=== PATIENT | female | born 1935 | race Hispanic/Latino ===

== ENCOUNTER 2017-12-10 14:05 | Emergency (ER) | payer MEDICARE, BC ==
[2017-12-10 14:22] VITALS: BMI 33.8
[2017-12-10] MEDS ORDERED: Oxycodone/Acetaminophen 5/325 mg Tab PO STA ×2 (14:25→17:01)
--- NOTE | 2017-12-10 14:27 | ED PDOC ---
Arrival/HPI - General Time Seen by Provider: 12/10/17 14:19 Historian: Patient - History of Present Illness Narrative History of Present Illness (Text): 12/10/17 14:25 82 y/o female, no significant pmh, nkda, not on any blood thinner or anticoagulant, c/o fall and rt. shoulder pain s/p tripped over the object on the floor and landed on the facial and rt. shoulder region x 1 hour. Aching pain, aggravated by rt. shoulder movement, had epistaxis earlier but resolved with last tetanus under 6 years ago, no night sweat, no rash, no numbness or tingling, admits mild rt. sided neck pain from the fall, no change in vision, no headache, no chest pain or shortness of breath. Past Medical History - Provider Review Nursing Documentation Reviewed: Yes Family/Social History - Physician Review Nursing Documentation Reviewed: Yes Family/Social History: Unknown Family HX Allergies/Home Meds Allergies/Adverse Reactions: Allergies No Known Allergies Allergy (Verified 12/10/17 14:22) Home Medications: Home Meds Medication Instructions Recorded Confirmed Levothyroxine [Synthroid] 0.112 mg PO QOTHERDAY 12/10/17 12/10/17 Levothyroxine [Synthroid] 100 mcg PO QOTHERDAY 12/10/17 12/10/17 Losartan/Hydrochlorothiazide 1 each PO DAILY 12/10/17 12/10/17 [Hyzaar 100-25 Tablet] Review of Systems - Review of Systems Constitutional: absent: Fatigue, Fevers Eyes: absent: Vision Changes ENT: Epistaxis. absent: Hearing Changes Respiratory: absent: SOB, Cough Cardiovascular: absent: Chest Pain Gastrointestinal: absent: Abdominal Pain, Nausea, Vomiting Musculoskeletal: Arthralgias, Neck Pain. absent: Back Pain, Joint Swelling, Myalgias Skin: absent: Rash, Pruritis Neurological: absent: Headache, Dizziness Psychiatric: absent: Anxiety, Depression, Suicidal Ideation Physical Exam Vital Signs Temp Pulse Resp BP Pulse Ox 12/10/17 14:06 98.6 F 94 H 18 140/100 H 100 Pain Distress: Moderate Mental Status: Positive for: Alert and Oriented X 3 - Systems Exam Head: Present: Atraumatic, Normocephalic. No: Tenderness, Contusion, Swelling, Ecchymosis, Abrasion, Laceration Pupils: Present: PERRL Extroacular Muscles: Present: EOMI Conjunctiva: Present: Normal Ears: Present: NORMAL TM, Normal Canal. No: Erythema Mouth: Present: Moist Mucous Membranes, Normal Lips, Normal Tounge. No: Drooling, Trismus Pharnyx: Present: Normal. No: ERYTHEMA, EXUDATE, TONSILS ENLARGED Nose (External): Present: Contusion. No: Abrasion, Laceration, Lesions Nose (Internal): Present: Normal Inspection, No Active Bleeding, Moist, Clear Mucous, Epistaxis (resolved rt. nostril). No: Engorged, Edematous, Rhinorrhea, Septal Deviation, Septal Hematoma Neck: Present: Normal Range of Motion, Paraspinal Tenderness (+ttp on the rt. paraspinal muscle region). No: MIDLINE TENDERNESS, Lymphadenopathy Respiratory/Chest: Present: Clear to Auscultation, Good Air Exchange. No: Respiratory Distress, Accessory Muscle Use, Wheezes, Decreased Breath Sounds, Rales, Retracting, Rhonchi, Tachypneic, Tender to Palpation Cardiovascular: Present: Regular Rate and Rhythm, Normal S1, S2. No: Murmurs Abdomen: No: Tenderness, Distention, Peritoneal Signs Back: Present: Normal Inspection Upper Extremity: Present: Normal Inspection, NORMAL PULSES, Other (Rt. upper extremity: +ttp on the proximal humerus region, no elbow/forearm/wrist/hand/ finger tenderness or swelling, no scaphoid tenderness, FROM except painful rt. shoulder movement, sensation intact, motor 5/5, +radial pulse, capillary refill < 2 seconds, neurovascular intact. ). No: Cyanosis, Edema Lower Extremity: Present: Normal Inspection. No: Edema Neurological: Present: GCS=15, CN II-XII Intact, Speech Normal Skin: Present: Warm, Dry, Normal Color. No: Rashes Psychiatric: Present: Alert, Oriented x 3, Normal Insight, Normal Concentration Medical Decision Making ED Course and Treatment: 12/10/17 14:31 -CT head/facial/cervical -Rt. shoulder movement -Percocet -Observe and reassess 12/10/17 16:50 -CT Head: No intracranial hemorrhage or mass effect. No calvarial fracture. Cerebral atrophy and left-sided lacune - suggested. -CT maxillofacial: No fracture appreciated. Cervical apophyseal joint hypertrophic arthrosis noted -CT Cervical: No fracture. Minimal malalignment compatible with degenerative ligamentous laxity most notable at C4, C5-C6 levels where degenerative spondylosis and intervening degenerative disc disease and mild facet hyper trophic arthrosis are most notable. Left, small exostosis/spurring and/or ossification of the left ligamentum flavum on axial series 3, image 45 seen at the upper C6 vertebral level on sagittal series 605, image 51. No central stenosis associated features here. -Rt. shoulder xray: Comminuted displaced mid proximal shaft fractured fragments. -I applied the coap splint on the patient with sling which her rt. upper extremity is with full sensation intact, and motor 5/5 with full neurological intact. -I spoke to the orthopedic dr. anna as per patient request, dr. anna will come to see the patient. -I discussed all radiology results including CT Cervical which he suggest to discharge the patient home with orthopedic and neurologist/neurosurgery follow up. -Discharge home with sling, coap splint, follow up with your own pmd and orthopedic/other specialists within 2 days, return to the ER for any new or worsening signs or symptoms. 12/10/17 17:02 -Dr. Anna at the bed side, pt. request more pain which I ordered additional tablet of percocet 12/10/17 17:12 -Dr. Anna removed the splint, manipulated the fracture which he reapply the coap splint, sling applied by him. -I reviewed the [facility] report show no signs of drug abuse. -Discharge home with percocet, sling, coap splint, follow up with your own pmd and orthopedic Dr. Anna within 2 days, return to the ER for any new or worsening signs or symptoms. - RAD Interpretation Radiology Orders: 12/10/17 14:24 CERVICAL SPINE W/O CONTRAST [CT] Stat HEAD W/O CONTRAST [CT] Stat MAXILLOFACIAL W/O CONTRAST [CT] Stat SHOULDER RIGHT [RAD] Stat CT head: FINDINGS: HEMORRHAGE: No intracranial hemorrhage. BRAIN: No mass effect or edema. Generalize sure atrophy. Left lacune- inferior posterior basal ganglionic 2 to 3 mm VENTRICLES: Unremarkable. No hydrocephalus. CALVARIUM: Unremarkable. PARANASAL SINUSES: Unremarkable as visualized. No significant inflammatory changes. MASTOID AIR CELLS: Unremarkable as visualized. No inflammatory changes. OTHER FINDINGS: Atherosclerotic vascular calcifications present supraclinoid internal carotid arteries. . IMPRESSION: No intracranial hemorrhage or mass effect. No calvarial fracture. Cerebral atrophy and left-sided lacune - suggested CT Cervical: VERTEBRAE: No fracture. Mild stepladder like malalignments consistent with degenerative ligamentous laxity. . No destructive bony lesion. Left, small exostosis/ spurring and/or ossification of the left ligamentum flavum on axial series 3, image 45 seen at the upper C6 vertebral body level on sagittal series 605, image 51 no central stenosis associated features here. Plate ridging most pronounced anteriorly and posteriorly at C4-5 C5-6 and to lesser extent C6-7. DISCS/SPINAL CANAL/NEURAL FORAMINA: No significant central canal or neural foraminal stenosis. Disc heights decreased especially at C5-6 and to a lesser extent C4-5 and see C6-7. PARASPINAL SOFT TISSUES: As above regarding the small exostosis and/or spurring on the left side at the upper C6 vertebrae level closest to the left corresponding lamina and flavum here. No complicating spinal stenosis OTHER FINDINGS: None. IMPRESSION: No fracture. Minimal malalignment compatible with degenerative ligamentous laxity most notable at C4, C5-C6 levels where degenerative spondylosis and intervening degenerative disc disease and mild facet hyper trophic arthrosis are most notable. Left, small exostosis/spurring and/or ossification of the left ligamentum flavum on axial series 3, image 45 seen at the upper C6 vertebral level on sagittal series 605, image 51. No central stenosis associated features here. CT Maxillofacial: PROCEDURE: CT MAXILLOFACIAL BONES WITHOUT CONTRAST HISTORY: fall, nasal injury COMPARISON: None TECHNIQUE: Contiguous axial CT images of the maxillofacial bones were obtained. Coronal and sagittal reformats were generated. Radiation dose: Total exam DLP = 869 mGy-cm. This CT exam was performed using one or more of the following dose reduction techniques: Automated exposure control, adjustment of the mA and/or kV according to patient size, and/or use of iterative reconstruction technique. FINDINGS: NASAL BONES: Unremarkable. ORBITS: Unremarkable. PARANASAL SINUSES/ MASTOIDS: Clear. Bilateral low bulla ethmoidalis air cells are incidentally noted developmental variants MAXILLA: Unremarkable. MANDIBLE/ TEMPOROMANDIBULAR JOINTS: Unremarkable. SKULL BASE: Unremarkable. TEMPORAL BONES: Middle ears and mastoid grossly unremarkable. OTHER FINDINGS: None. IMPRESSION: No fracture appreciated. Cervical apophyseal joint hypertrophic arthrosis noted Rt. shoulder xray: COMPARISON: No prior. FINDINGS: BONES: Comminuted right mid the proximal humeral shaft long segmental fracture fragments with lateral displacement of the proximal fracture fragments No shoulder dislocation. Acromioclavicular joint arthrosis Lateral view shows anterior apical angulation of the fracture fragments. JOINTS: Glenohumeral and acromioclavicular joints osteoarthritis. SOFT TISSUES: Normal. OTHER FINDINGS: None. IMPRESSION: Comminuted displaced mid proximal shaft fractured fragments. [employer] Worker: Radiologist - Medication Orders Current Medication Orders: Oxycodone/Acetaminophen (Percocet 5/325 Mg Tab) 1 tab PO STAT STA Stop: 12/10/17 17:02 Discontinued Medications Oxycodone/Acetaminophen (Percocet 5/325 Mg Tab) 1 tab PO STAT STA Stop: 12/10/17 14:26 Last Admin: 12/10/17 14:31 Dose: 1 tab MAR Pain Assessment Document 12/10/17 14:31 HI (Rec: 12/10/17 14:32 HI [id number]) Pain Reassessment Is this a pain reassessment? No Sleep Is patient sleeping during reassessment? No Presence of Pain Presence of Pain Yes - PA / MARKET RESEARCH COORDINATOR / Resident Statement /DO has reviewed & agrees with the documentation as recorded. Disposition/Present on Arrival - Present on Arrival Any Indicators Present on Arrival: No History of DVT/PE: No History of Uncontrolled Diabetes: No Urinary Catheter: No History of Decub. Ulcer: No - Disposition Have Diagnosis and Disposition been Completed?: Yes Diagnosis: Humerus shaft fracture, Fall, Neck pain, Epistaxis Disposition Time: 14:31 Patient Plan: Discharge Patient Problems: Current Active Problems Problem Status Onset Humerus shaft fracture Acute Fall Acute Neck pain Acute Epistaxis Acute Condition: IMPROVED Additional Instructions: -Discharge home with percocet, sling, coap splint, follow up with your own pmd and orthopedic Dr. Anna within 2 days, return to the ER for any new or worsening signs or symptoms. Prescriptions: oxyCODONE/Acetaminophen [Percocet 5/325 mg Tab] 1 tab PO TID PRN #12 tab PRN Reason: Other Referrals: Patric Garcia DO [Staff Provider] - Follow up with primary Reagan Kramer MD [Staff Provider] - Follow up with primary Mahendra Loja MD [Staff Provider] - Follow up with primary Misha Pruett MD [Staff Provider] - Follow up with primary Forms: WORK NOTE
--- NOTE | 2017-12-10 14:53 | CT ---
PROCEDURE: CT HEAD WITHOUT CONTRAST. HISTORY: fall COMPARISON: None available. TECHNIQUE: Axial computed tomography images were obtained through the head/brain without intravenous contrast. Radiation dose: Total exam DLP = 869 mGy-cm. This CT exam was performed using one or more of the following dose reduction techniques: Automated exposure control, adjustment of the mA and/or kV according to patient size, and/or use of iterative reconstruction technique. FINDINGS: HEMORRHAGE: No intracranial hemorrhage. BRAIN: No mass effect or edema. Generalize sure atrophy. Left lacune- inferior posterior basal ganglionic 2 to 3 mm VENTRICLES: Unremarkable. No hydrocephalus. CALVARIUM: Unremarkable. PARANASAL SINUSES: Unremarkable as visualized. No significant inflammatory changes. MASTOID AIR CELLS: Unremarkable as visualized. No inflammatory changes. OTHER FINDINGS: Atherosclerotic vascular calcifications present supraclinoid internal carotid arteries. . IMPRESSION: No intracranial hemorrhage or mass effect. No calvarial fracture. Cerebral atrophy and left-sided lacune - suggested
--- NOTE | 2017-12-10 15:10 | RAD ---
PROCEDURE: Radiographs of the Right Shoulder HISTORY: rt. shoulder injury and pain COMPARISON: No prior. FINDINGS: BONES: Comminuted right mid the proximal humeral shaft long segmental fracture fragments with lateral displacement of the proximal fracture fragments No shoulder dislocation. Acromioclavicular joint arthrosis Lateral view shows anterior apical angulation of the fracture fragments. JOINTS: Glenohumeral and acromioclavicular joints osteoarthritis. SOFT TISSUES: Normal. OTHER FINDINGS: None. IMPRESSION: Comminuted displaced mid proximal shaft fractured fragments.
--- NOTE | 2017-12-10 15:16 | CT ---
PROCEDURE: CT Cervical Spine without contrast HISTORY: fall COMPARISON: None available. TECHNIQUE: Axial computed tomography images were obtained of the cervical spine without the use of intravenous contrast. Coronal and sagittal reformatted images were created and reviewed. Radiation dose: Total exam DLP = 542 mGy-cm. This CT exam was performed using one or more of the following dose reduction techniques: Automated exposure control, adjustment of the mA and/or kV according to patient size, and/or use of iterative reconstruction technique. FINDINGS: VERTEBRAE: No fracture. Mild stepladder like malalignments consistent with degenerative ligamentous laxity. . No destructive bony lesion. Left, small exostosis/spurring and/or ossification of the left ligamentum flavum on axial series 3, image 45 seen at the upper C6 vertebral body level on sagittal series 605, image 51 no central stenosis associated features here. Plate ridging most pronounced anteriorly and posteriorly at C4-5 C5-6 and to lesser extent C6-7. DISCS/SPINAL CANAL/NEURAL FORAMINA: No significant central canal or neural foraminal stenosis. Disc heights decreased especially at C5-6 and to a lesser extent C4-5 and see C6-7. PARASPINAL SOFT TISSUES: As above regarding the small exostosis and/or spurring on the left side at the upper C6 vertebrae level closest to the left corresponding lamina and flavum here. No complicating spinal stenosis OTHER FINDINGS: None. IMPRESSION: No fracture. Minimal malalignment compatible with degenerative ligamentous laxity most notable at C4, C5-C6 levels where degenerative spondylosis and intervening degenerative disc disease and mild facet hyper trophic arthrosis are most notable. Left, small exostosis/spurring and/or ossification of the left ligamentum flavum on axial series 3, image 45 seen at the upper C6 vertebral level on sagittal series 605, image 51. No central stenosis associated features here.
--- NOTE | 2017-12-10 15:22 | CT ---
PROCEDURE: CT MAXILLOFACIAL BONES WITHOUT CONTRAST HISTORY: fall, nasal injury COMPARISON: None TECHNIQUE: Contiguous axial CT images of the maxillofacial bones were obtained. Coronal and sagittal reformats were generated. Radiation dose: Total exam DLP = 869 mGy-cm. This CT exam was performed using one or more of the following dose reduction techniques: Automated exposure control, adjustment of the mA and/or kV according to patient size, and/or use of iterative reconstruction technique. FINDINGS: NASAL BONES: Unremarkable. ORBITS: Unremarkable. PARANASAL SINUSES/ MASTOIDS: Clear. Bilateral low bulla ethmoidalis air cells are incidentally noted developmental variants MAXILLA: Unremarkable. MANDIBLE/ TEMPOROMANDIBULAR JOINTS: Unremarkable. SKULL BASE: Unremarkable. TEMPORAL BONES: Middle ears and mastoid grossly unremarkable. OTHER FINDINGS: None. IMPRESSION: No fracture appreciated. Cervical apophyseal joint hypertrophic arthrosis noted
[2017-12-10 17:45] VITALS: BP 113/71; PULSE 72; TEMP 98.8; O2SAT 99
[2017-12-10 23:46] VITALS: RESP 16
--- NOTE | 2017-12-11 09:04 | CON ---
DATE: 12/11/2017 HISTORY OF PRESENT ILLNESS: The patient is an 82-year-old female came in with falling at home; has a highly comminuted extensive fracture of the diaphysis of the right humerus with good neurovascular status with highly comminuted and too much comminution for ORIF for even a nail. So, this a closed injury, good neurovascular status. We put a well-fitted coaptation splint with good padding from the above the shoulder to around the elbow and plan to allow the sling to go down so we can put functional brace on in about 10 days to 2 weeks. This was well padded and post reduction shows no neurologic defects and we will get an x-ray when the swelling goes down because right now, we _can manipulate the fracture because of any malalignment. We will improve the alignment by molding the coaptation splint with plaster of Narcisa. We will send the patient home in collar and a cuff and see her in the office in 10 days for further evaluation and once the swelling goes down, we will put her in a functional humeral brace on that right dominant humerus. FINAL DIAGNOSIS: Comminuted displaced fracture of the right humerus dominant side. We will try to treat her conservatively. We will consider surgery only if it does not heal. Patric Garcia DO MTDD
== END 2017-12-10 17:45 | disposition home or self-care (01) ==
LOC: ED 14:05
DX: S42.351A Displaced comminuted fracture of shaft of humerus, right arm, initial encounter for closed fracture (principal); W01.0XXA Fall on same level from slipping, tripping and stumbling without subsequent striking against object, initial encounter; R04.0 Epistaxis; M54.2 Cervicalgia